=== PATIENT | female | born 1980 | race Caucasian/White ===

== ENCOUNTER 2023-01-19 08:27 | Outpatient (REF) | payer OTHER, SELFPAY ==
--- NOTE | 2023-01-19 18:19 | P.PNPSP_ITS ---
Subjective Subjective Date of Service: 01/19/23 Reason For Visit: f12.10 Interim History: Patient seen over telemedicine. No acute issues or concerns although just came to program from lab. Was unable to get labs done due to legal last name. WIll rewrite order. She reports no major events over the weekend. She reports being pretty anxious currently due to debacle at lab over last name. Otherwise less problematic than mood. She is not feelin great, very depressed . We had conitinued her on long Lamictal taper as started by her provider. I'm concerned that the Lamcital may be providing more therapeutic support than initially appreciated. Given mood is no better, possibly a little worse than last week, depression severity at an 8.5/10 severity, no SI and axniety severity at a 7 out of 10. I think we will hold off at 100 Bmg BID and continue there to continue providing mood stabilization. Her venlafaxine was increased to 225 mg 4 or 5 months ago but she can say with certainty this has not been helpful. We will lower dose to 187.5 mg (this was skipped over titrating from 150 mg to 225 mg. She is currently at 1 mg in AM/ 2 mg in PM of guanfacine, thus far she is not noticing any change although notea that her sleep is good, no further delay in onset of sleep with guanfacine at 2 mg qhs. Will plan to increase to 2 mg in AM. Denies any adverse effects, dizziness, faintness. patient spoke with her mother and was able to provide further developmental history significant for vaginal delivery breech, cord wrapped 3 times around neck, was mendieta, as she was without O2 for 4 min. required resuscitation but ultimately did not require time in NICU or extedned hospital stay. Shares some neurodivergent characteristics around sensory sensitivity. She reports struggles with attentional and emotional regulation, difficuties with self soothing, cognitive flexibility, executive functioning. In fact, she feels it is the executive dysfunction that ultimately sets her off on a path of feeling demoralized. WHen I can keep things straight or be productive, and I just get stuck in my head...that's what makes me sad, angry, stressed, feel worthless. Once somatic anxiety better managed, and mood is felt not to be unstable, we may trial treatment to target these issues: may consider modafinil, Strattera or other stimulating medication but in balance with mood and concerns for seizure provocation. Will likely avoid Wellbutrin. Medication Compliance: Yes Side effects from medications: No Attending Groups: Yes Review of Systems Acute medical concerns: No Mental Status Exam Mental Status Exam Narrative: Alert, oriented, in no acute distress. Casually dressed. Hair half black/mendieta. Extensive tatooing, torso, UEs. Hygiene and grooming good. No tics, tremors, psychoagitation or neurovegetative retardation. Eye contact good. Mood anxious, depressed. Affect appropriate, full range reactive, congruent. Speech normal, without pressure or latency. Thought content linear, coherent without FOI/ZAHRA. Thought content ruminative, relevant to stressors. No SI or HI on inquiry. No paranoia or delusional content elicited. No perceptual disturbance noted. Cognition grossly intact. Sensorium clear. Insight fair, judgment good. Assessment & Plan Assessment & Plan (1) Generalized anxiety disorder: Status: Acute Code(s): F41.1 - Generalized anxiety disorder (2) Attention-deficit hyperactivity disorder, unspecified type: Qualifiers: Attention deficit-hyperactivity disorder type: combined inattentive- hyperactive Qualified Code(s): F90.2 - Attention-deficit hyperactivity disorder, combined type Status: Acute Code(s): F90.9 - Attention-deficit hyperactivity disorder, unspecified type (3) Depressive disorder: Status: Acute Code(s): F32.A - Depression, unspecified (4) Cannabis abuse: Status: Acute Code(s): F12.10 - Cannabis abuse, uncomplicated Plan will continue Lamictal at 100 mg BID for mood stability, seizure prophx lower Effexor to 187.5 mg qd (from 225 mg qd) increase Intuniv to 2 mg qAM, continue 2 mg qhs to target anxiety, PFC regulation/Ex fxn rewrite lab orders we started prelimnary discussion around potential options to address cognitive and emotional issues (WB, strattera, stimulants, would prefer using vyvanse however if not available at her pharmacy we may consider Provigil, Nuvigil, atemoxetine in combination with Intuniv and adequate mood stabilization continue to monitor Patient educated on: diagnosis, medication risk/benefits and substance abuse Informed Consent: understands Reason for contiued partial hosp. stay Substantial Risk for: inability to function, rapid decompensation and med/psych decompensation Certification I certify that partial hospital treatment is medically necessary due to the symptoms and problems resulting from the patient's mental illness and the failure to treat the patient at the partial hospital level of care would likely result in the patient requiring inpatient psychiatric care which could not be prevented at a less intensive level of care. Total time managing care of this patient today __60__ minutes. Discharge Plan Discharge Patient Disposition: Home, Self-Care Discharge Medications: New lamotrigine 100 mg tablet 100 mg PO BID Qty: 30 0RF venlafaxine 37.5 mg capsule,extended release 24hr 37.5 mg PO DAILY Qty: 20 0RF Continued venlafaxine 150 mg capsule,extended release 24hr 150 mg PO BEDTIME levothyroxine 75 mcg tablet 75 mcg PO DAILY Patient Comments: Patient to take one hour before other medications and without food. budesonide-formoterol [Symbicort] 160-4.5 mcg/actuation HFA aerosol inhaler 2 puff INHALATION BID guanfacine 2 mg tablet extended release 24 hr 2 mg PO QPM Qty: 20 0RF guanfacine 1 mg tablet extended release 24 hr 1 mg PO BID Qty: 20 0RF Discontinued lamotrigine 100 mg Tablet See Rx Instructions .ROUTE .COMPLEX Rx Instructions: Tapering off. Take one and 1/2 tablets in the am and one tab QHS. Decrease the dose by 50 mg every 2 weeks. No Action pantoprazole 40 mg tablet,delayed release (DR/EC) 40 mg PO BID gabapentin 100 mg capsule 100 mg PO TID Qty: 30 0RF Discharge Date/Time: 01/19/23 08:28 Telehealth Telehealth Location of provider rendering services: other (private practice) Location of patient: other ([facility]) Patient Identification confirmed using: Name, : Yes Telehealth method: video Patient verbally consented to treatment: Yes Minutes spent on Phone/Video with Pt.: [id number]
== END 2023-01-19 08:28 | disposition home or self-care (01) ==
LOC: HO.LAB 08:27
PROVIDERS: Visit Provider Psychiatry & Neurology Psychiatry
DX: Z13.89 Encounter for screening for other disorder (principal)

== ENCOUNTER → 2023-01-19 08:27 | Outpatient (BNV) | payer OTHER, SELFPAY | PROVIDERS: Visit Provider Psychiatry & Neurology Psychiatry | DX: F41.1 Generalized anxiety disorder (principal); F90.2 Attention-deficit hyperactivity disorder, combined type; F32.A Depression, unspecified; F12.10 Cannabis abuse, uncomplicated | CPT/HCPCS: 99213 ==

== ENCOUNTER 2023-01-22 11:06 | Outpatient (REF) | payer OTHER, SELFPAY ==
[2023-01-22 11:30] LABS: MANUAL DIFF FLAG NO
[2023-01-22 12:32] LABS: Basophils Absolute Auto 0.1 X10*3/uL (0.0-0.2); Basophils Percent Auto 0.9 % (0-2); Eosinophils Absolute Auto 0.3 X10*3/uL (0.0-0.4); Eosinophils Percent Auto 2.6 % (0-4); Hemoglobin 10.1 g/dl (12.0-16.0); Imm Gran Abs Auto 0.08 X10*3/uL (0.00-0.03); Imm Gran Pct Auto 0.7 % (0.0-0.4); Lymphocytes Absolute Auto 2.2 X10*3/uL (1.2-4.9); Lymphocytes Percent Auto 18.2 % (20-40); Mean Corpuscular HGB Conc 29.7 g/dl (31.0-35.0); Mean Corpuscular Hemoglobin 23.1 pg (27.0-33.0); Mean Corpuscular Volume 77.6 fL (80.0-98.0); Mean Platelet Volume 8.7 fL (9.4-12.3); Monocytes Absolute Auto 0.9 X10*3/uL (0.1-1.2); Monocytes Percent Auto 7.6 % (2-11); Neutrophils Absolute Auto 8.6 x10*3/uL (2.0-8.3); Platelet Count 532 X10*3/uL (160-400); Red Blood Count 4.38 X10*6/uL (4.20-5.50); Red Cell Distribution Width 17.5 % (11.0-16.0); White Blood Count 12.3 X10*3/uL (4.8-10.8)
[2023-01-22 13:00] LABS: Estimated Average Glucose 108 mg/dL; Hemoglobin A1c % 5.4 % (<6.0)
[2023-01-22 13:12] LABS: Alanine Aminotransferase 10 U/L (0-31); Albumin Level 4.1 g/dL (3.5-5.0); Alkaline Phosphatase 109 U/L (39-117); Anion Gap 11 (12-20); Aspartate Amino Transferase 15 U/L (5-31); Bilirubin Total 0.3 mg/dL (0.0-1.0); Blood Urea Nitrogen 10 mg/dL (9-16); Carbon Dioxide 27 mmol/L (22-29); Chloride 106 mmol/L (96-108); Cholesterol 198 mg/dL (<200); Estimated Glomerular Filt Rate > 60; Glucose Random 83 mg/dL (60-115); HDL Cholesterol 68 mg/dL (>40); LDL Cholesterol Calculated 121 mg/dL (<100); Potassium 4.6 mmol/L (3.3-5.1); Sodium 139 mmol/L (135-145); Total Protein 6.7 g/dL (6.5-8.0); Triglycerides 45 mg/dL (<150)
[2023-01-22 13:21] LABS: Free T4 (Free Thyroxine) 1.06 ng/dL (0.71-1.85); Thyroid Stimulating Hormone 0.99 uIU/mL (0.32-4.0)
[2023-01-22 13:36] LABS: Amphetamine Screen Urine Not Detected (Not Detect); Barbiturates, Urine Not Detected (Not Detect); Benzodiazepines Screen Urine Not Detected (Not Detect); Cannabinoid Screen Urine POSITIVE (Not Detect); Cocaine Screen Urine Not Detected (Not Detect); Fentanyl, urine Not Detected (Not Detect); Opiate Screen Urine Not Detected (Not Detect); Phencyclidine Screen Urine Not Detected (Not Detect)
== END 2023-01-22 11:07 | disposition home or self-care (01) ==
LOC: HO.LAB 11:06
PROVIDERS: PCP Internal Medicine; Visit Provider Psychiatry & Neurology Psychiatry
DX: F12.10 Cannabis abuse, uncomplicated (principal); F41.1 Generalized anxiety disorder
CPT/HCPCS: 80053; 80061; 80307; 83036; 84439; 84443; 85025

== ENCOUNTER 2023-01-28 11:45 | Outpatient (RCR) | payer OTHER, SELFPAY ==
[2023-01-14 13:14] VITALS: BP 113/82; PULSE 96; TEMP 36.9
[2023-01-14 13:16] VITALS: BMI 26.7
--- NOTE | 2023-01-14 14:20 | PC.ADMIT ---
Patient is a 42 year old female who was referred to [facility] by her prescriber Aaliyah Brito APRN d/t increased depression sxs and having difficulty coping at work. Reports feeling overwhelmed at work, increased stress, and feels she is not present mentally when at work. She is taking a ZAHRA from work to work on her mental health. 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 Patient also reports having nightly nightmares and poor sleep. Difficulty leaving her house and has been isolating from family and friends at times. Denied any history of inpatient LOC. She is smoking marijuana TID to cope. Elva is alert and oriented x4. Calm and cooperative. Presented with depressed mood and anxious affect. She denied SI. She was given a copy of her safety plan if needed. She was engaging and receptive. Reports she was recently last January 2023, is supportive. Medications reconciled with patient and patient's pharmacy. She reports taking medications as prescribed. Is currently tapering off Lamotrigine 50 mg every 2 weeks.
--- NOTE | 2023-01-15 18:07 | HO.PHP ---
The client's case was reviewed and opened in treatment team.
--- NOTE | 2023-01-15 20:32 | HO.PS.ADMBH ---
HPI Date of Service: 01/15/23 Chief Complaint: MDD,ADHD,TIFFANIE Sources of Information: patient interviewed, chart reviewed and crisis/core team assessment reviewed HPI Narrative: Patient is a single, employed, 42 year old female with a history of anxiety, depression, disorganized eating, ADHD, seizures who is referred by her outpatient psychiatric provider for worsening anxiety, depression and frustration tolerance which is impairing her functioning at work and general self care. Specifically she reports being very concerned about the anxiety and depression compounding unhealthy eating practices, adding that her provider recently diagnosed her with Avoidant Restricting Food Intake Disorder. She has no prior history of PHP or inpatient hospitalizations. 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 It's the first time her performance has been a cause of concern from school administrators. She views the anxiety as a bigger problem than the depression. She was feeling increasingly stressed and anxious about going to work, to the point she has been engaging in avoidance behaviors, calling out sick, leading to isolation, spending hours in bed, difficulty getting out of bed, but also not getting good sleep. She spends hours at a time scrolling through her phone, feeling guilty, unmotivated constant negative self talk, feeling like people don't like her and that there's something wrong with her. She identifies as a perfectionist and has been judging herself harshly for being in this situation. She reports anxiety is always there, some underlying sadness that is easier to ignore than the anxiety. She reports feeling stuck, helplessness, denies any thoughts of giving up on life. Cites loss of a friend to suicide as protective factor against SI, I saw what that did to family and friends, so I would never consider doing that . Reports long history of depression and anxiety since age 12 but says she has usually found ways to persevere: leaning on healthy coping strategies, finding a lot of value in her work as a teacher, reading self-help books, and adherence to treatment. In recent months she has been unable to compensate as usual and that her mental health issues were starting to interfere with her ability to work. Effexor XR was increased from 150 mg to 225 mg, 6 months ago, without further benefit. She is currently being weened off of lamotrigine by her psych provider as it was felt this has no longer been effective. She reports being compliant on medications, denies any adverse effects. History of eating disorder, diagnosed with Anorexia at age 17. Patient reportedly underwent ADHD testing at age 17 through [facility], and carries ADHD diagnosis, had previous stimulant trials with mixed results. She was also diagnosed as having Nonverbal Disability and feels she is on the spectrum due to neurodivergent tendencies, sensory issues since childhood, which she feels relates to anoxic injury/complications at . Past Psychiatric History: No previous IPLOC, PHP or detox admissions Denies hx of suicide attempts, gestures or SIB Outpatient psych provider: Samra Puri (for past 2-3 yrs) Denies any suicide attempts or gestures or SI Hx of SIB as a teen to cope w stress (since then, [employer] healthy outlet ) Hx of EDB, reported dx of Anorexia at age 17 Reports hx of neuropsych evaluation at age 17, was diagnosed with ADHD and NVD Past trials: Wellbutrin (yrs, in teens), Zoloft (sexual AE), Prozac (sexual AE), stimulants (Concerta, Adderall, Ritalin) yrs ago, gabapentin (helpful for hot flashes in the past) possibly ?Lexapro Current Medications Lamictal 250 mg qd Effexor XR 225 mg qd Ativan (last rxed #12 in 09/2022) hydroxyzine 25- 75 mg qhs PRN Symbicort inhaler BID levothyroxine 75 mcg/d pantoprazole 40 mg BID [facility] Medical History (Updated 01/27/23 @ 00:03 by Background Daemon) Hypothyroidism Attention-deficit hyperactivity disorder, unspecified type Shingles Endometriosis Gastritis IBD (inflammatory bowel disease) Asthma Narrative: Hypothyroidism (on levothyroxine) Endometriosis Asthma, stable query IBD dx, (pt not sure this is correct) ?IBS Hx of epileptic seizures x 2 in 2016, treated on Keppra < 1 yr. No further seizures. 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 (breech/forceps delivery, cord wrapped around neck causing possible anoxic injury, required intervention) though apparently did not require extended hospital stay in NICU or further neuro follow-up Perimenopausal: +hotflashes x 2 yrs, irregular menses LMP: 12/17 Ht: 5' Wt: 136 lbs Surgical History (Updated 01/14/23 @ 13:13 by Mray Goodwin RN) Hx of cholecystectomy Family History: Father w cardiac disease, hx of Epilepsy on AED Mother with autoimmune problems, gallbladder, Ankit's thyroiditis/hypothyroidism PGM with Bipolar disorder No FH of addiction or suicides Social History: in 2021, lives at home with and 2 cats. No children. Works as a teacher x 20 yrs. Substance History: Regular cannabis use >10 yrs, daily, multiple times throughout the day, outside of work Trauma History: Close friend suicided years ago Diagnostics Vital Signs (24Hr): BMI result Body Mass Index 26.7 Meds/Allergies Meds Home Medications Medication Instructions Recorded Confirmed Type budesonide-formoterol HFA 160 2 puff inhalation BID 01/14/23 01/14/23 History mcg-4.5 mcg/actuation aerosol inhaler (Symbicort) lamotrigine 100 mg tablet See Rx Instructions .Route .COMPLEX 01/14/23 01/14/23 History levothyroxine 75 mcg tablet 75 mcg PO DAILY 01/14/23 01/14/23 History pantoprazole 40 mg tablet,delayed 40 mg PO BID 01/14/23 01/14/23 History release venlafaxine 150 mg 150 mg PO BEDTIME 01/14/23 01/14/23 History capsule,extended release 24 hr Narrative: patient taking venlafaxine ER 225 mg qd Allergies Allergies Allergy/AdvReac Type Severity Reaction Status Date / Time lactose Allergy Gastrointestinal Verified 01/14/23 13:14 Upset Mental Status Exam Mental Status Exam Narrative: Alert, oriented, in no acute distress. Casually dressed. Hair dyed half black/ half mendieta. Extensive tattooing on torso and arms. Hygiene and grooming good. No tics, tremors, psychoagitation or neurovegetative retardation. Eye contact good. Mood anxious, depressed. Affect appropriate, full range reactive, congruent. Speech normal, without pressure or latency. Thought content linear, coherent without FOI/ZAHRA. Thought content ruminative, relevant to stressors. No SI or HI on inquiry. No paranoia or delusional content elicited. No perceptual disturbance noted. Cognition grossly intact. Sensorium clear. Insight fair, judgment good. Assessment & Plan Assessment & Plan (1) Generalized anxiety disorder: Status: Acute Code(s): F41.1 - Generalized anxiety disorder (2) Attention-deficit hyperactivity disorder, unspecified type: Status: Acute Qualifiers: Attention deficit-hyperactivity disorder type: combined inattentive-hyperactive Qualified Code(s): F90.2 - Attention-deficit hyperactivity disorder, combined type Code(s): F90.9 - Attention-deficit hyperactivity disorder, unspecified type (3) Depressive disorder: Status: Acute Code(s): F32.A - Depression, unspecified (4) Cannabis abuse: Status: Acute Code(s): F12.10 - Cannabis abuse, uncomplicated Plan Patient is currently amidst taper off of Lamictal by outpatient prescribed. Had been useful for mood in the past but felt to possibly have loss efficacy. It's worth noting that patient has a history of epileptic seizures in 2016 and has been maintained on Lamictal for a few years now, and I do have some concerns that this has been offering her some protection since she has had no further seizures since off Keppra. Also no further benefit gained from Effexor XR increase directly to 225 mg (from 150mg), perhaps experiencing some emotional blunting, given depression is more flat and detached, rather than presenting w tearfulness and dysphoria. we will reduce dose to 187.5 mg just in case this would have provided some benefit, as oppoed to 225 mg possibly being overthereutic/causing emotional flattening. Admit to PHP start guanfacine 1 mg qhs start gabapentin 100 mg TID patient has been on taper from Lamictal from 300 mg, current at 250 mg, will decrease to 200 mg and then hold there decrease venlafaxine ER to 187.5 mg qd continue other regular medications [facility] reviewed lap slip given for routine lab work (CBC, CMP, TFTs) and UDS continue to monitor as per protocol Patient educated on: diagnosis, medication risk/benefits, substance abuse and therapeutic strategies Informed Consent: understands Reason for continued partial hosp. stay Substantial Risk for: inability to function, rapid decompensation and med/psych decompensation Certification I certify that partial hospital treatment is medically necessary due to the symptoms and problems resulting from the patient's mental illness and the failure to treat the patient at the partial hospital level of care would likely result in the patient requiring inpatient psychiatric care which could not be prevented at a less intensive level of care. Time Spent With Patient Time: Total time managing care of this patient today _60___ minutes.
--- NOTE | 2023-01-26 15:06 | HO.PHP ---
[facility] staff member followed up with Kelli from [facility] regarding the referral that was placed for Elva on January 19, 2023. [facility] staff member left a VM and is awaiting a returned phone call.
--- NOTE | 2023-01-27 13:43 | HO.PHP ---
PHP staff member received Elva's appointment date and time for OP therapy through [facility], which is on February 11, 2023 at 1 PM in the [facility] office.
--- NOTE | 2023-01-27 21:33 | P.PNPSP_ITS ---
Subjective Subjective Date of Service: 01/27/23 Reason For Visit: MDD,ADHD,TIFFANIE Interim History: Patient seen today for follow-up, she is anticipating discharge at the end of the day tomorrow. Will be participating in [email or web address] for dx ARFID, the intake is later today. She reports mood is stable, denies any SI. SLeep is improved, she is sleeping 6 hours. She is taking guanfacine ER at 2 mg BID, seems to be helpful describes feeling calmer, less scattered, able to focus m ore . Appetite is stable, but difficulties with sensory aspects of eating, textures. She takes a consistent breakfast of Yamini bar and [place] drink. SHe takes her medications and has been toelrating them. She continues gabapentin at 100 - 200 mg TID. SHe notices more effect for anxiety at 200 mg. She continues on Effexor at 187.5 mg qd. SHe has her next appointment with Samra Brito on 02/13 at 3:30pm. SHe anticipates returning to work soon. [facility] paperwork was filled out and handed to patient. Medication Compliance: Yes Side effects from medications: No Attending Groups: Yes Review of Systems Acute medical concerns: No Mental Status Exam Mental Status Exam Narrative: Alert, oriented, in no acute distress. Casually dressed. Hair half black/mendieta. Extensive tatooing, torso, UEs. Hygiene and grooming good. No tics, tremors, psychoagitation or neurovegetative retardation. Eye contact good. Mood anxious, euthymic. Affect appropriate, full range reactive, congruent. Speech normal, without pressure or latency. Goal-directed, future-oriented. No SI or HI on inquiry. No evidence of psychosis. Cognition grossly intact. Sensorium clear. Insight fair, judgment good. Diagnostics Vital Signs (24Hr): BMI result Body Mass Index 26.7 Assessment & Plan Assessment & Plan (1) Depressive disorder: Status: Acute Code(s): F32.A - Depression, unspecified (2) Generalized anxiety disorder: Status: Acute Code(s): F41.1 - Generalized anxiety disorder (3) Attention-deficit hyperactivity disorder, unspecified type: Qualifiers: Attention deficit-hyperactivity disorder type: combined inattentive- hyperactive Qualified Code(s): F90.2 - Attention-deficit hyperactivity disorder, combined type Status: Acute Code(s): F90.9 - Attention-deficit hyperactivity disorder, unspecified type (4) Cannabis abuse: Status: Acute Code(s): F12.10 - Cannabis abuse, uncomplicated Plan Discharge from [facility] tomorrow continue regular medications will defer continued medication management to outpatient provider Appointment with psych provider Samra Brito APRN on 02/13/23 at 3:30pm No refills needed at this time Starting [facility], intake later today Patient educated on: diagnosis, medication risk/benefits and substance abuse Informed Consent: understands Reason for contiued partial hosp. stay Substantial Risk for: stable for discharge Certification I certify that partial hospital treatment is medically necessary due to the symptoms and problems resulting from the patient's mental illness and the failure to treat the patient at the partial hospital level of care would likely result in the patient requiring inpatient psychiatric care which could not be prevented at a less intensive level of care. Total time managing care of this patient today 30 minutes. Discharge Plan Discharge Attending provider: Betty Collazo Medications: New guanfacine 2 mg tablet extended release 24 hr 2 mg PO QPM Qty: 20 0RF venlafaxine [Effexor XR] 37.5 mg capsule,extended release 24hr 37.5 mg PO DAILY Qty: 30 0RF Continued venlafaxine 150 mg capsule,extended release 24hr 150 mg PO BEDTIME Changed guanfacine 1 mg tablet extended release 24 hr 1 mg PO BID Qty: 20 0RF gabapentin 100 mg capsule 100 - 200 mg PO TID Qty: 60 0RF No Action levothyroxine 75 mcg tablet 75 mcg PO DAILY Patient Comments: Patient to take one hour before other medications and without food. pantoprazole 40 mg tablet,delayed release (DR/EC) 40 mg PO BID lamotrigine 100 mg Tablet See Rx Instructions .ROUTE .COMPLEX Rx Instructions: Tapering off. Take one and 1/2 tablets in the am and one tab QHS. Decrease the dose by 50 mg every 2 weeks. budesonide-formoterol [Symbicort] 160-4.5 mcg/actuation HFA aerosol inhaler 2 puff INHALATION BID Stand Alone Forms: Patient Portal Discharge page Patient Education: Depression (DC)
== END 2023-01-28 23:59 | disposition home or self-care (01) ==
LOC: HO.PHPA 11:45
PROVIDERS: Visit Provider Psychiatry & Neurology Psychiatry
DX: F41.1 Generalized anxiety disorder (principal); F90.2 Attention-deficit hyperactivity disorder, combined type; F32.A Depression, unspecified; F12.10 Cannabis abuse, uncomplicated; Z79.899 Other long term (current) drug therapy
CPT/HCPCS: 90791; 90853

== ENCOUNTER → 2023-01-28 11:45 | Outpatient (BNV) | payer OTHER, SELFPAY | PROVIDERS: Visit Provider Psychiatry & Neurology Psychiatry | DX: F32.A Depression, unspecified (principal); F41.1 Generalized anxiety disorder; F90.2 Attention-deficit hyperactivity disorder, combined type; F12.10 Cannabis abuse, uncomplicated | CPT/HCPCS: 90792; 99213 ==